=== PATIENT | male | born 1970 | race Caucasian/White ===

== ENCOUNTER 2019-10-19 08:37 | Day surgery (SDC) | payer OTHER ==
[2019-10-12 10:55] LABS: BASOPHILS # (AUTO) 0.1 X10'3 (0-0.2); EOSINOPHILS # (AUTO) 0.1 X10'3 (0-0.9); EOSINOPHILS % (AUTO) 0.9 % (0-6); LYMPHOCYTES # (AUTO) 1.5 X10'3 (1.1-4.8); LYMPHOCYTES % (AUTO) 24.3 % (21-51); MEAN CORPUSCULAR HEMOGLOBIN 29.9 PG (27.0-31.0); MEAN CORPUSCULAR HGB CONC 34.6 g/dL (33.0-36.5); MEAN CORPUSCULAR VOLUME 86.5 FL (78-98); MEAN PLATELET VOLUME 7.5 FL (7.4-10.4); MONOCYTES # (AUTO) 0.3 X10'3 (0-0.9); MONOCYTES % (AUTO) 5.6 % (2-12); NEUTROPHILS # (AUTO) 4.2 X10'3 (1.8-7.7); NEUTROPHILS % (AUTO) 68.2 % (42-75); PRE OP HEMATOCRIT 50.3 % (42.0-52.0); PRE OP HEMOGLOBIN 17.4 g/dL (14.0-17.9); PRE OP PLATELET COUNT 260 X10'3 (140-440); RED BLOOD COUNT 5.82 X10'6 (4.70-6.10)
[2019-10-12 11:07] LABS: PRE OP PROTIME 10.5 SECONDS (9.0-12.0)
[2019-10-12 11:11] LABS: ALBUMIN 4.2 G/DL (3.4-5.0); ALBUMIN/GLOBULIN RATIO 1.3 (1.1-1.5); ALKALINE PHOSPHATASE 76 IU/L (46-116); BLOOD UREA NITROGEN 17 MG/DL (7-18); BUN/CREATININE RATIO 16.3 (5.4-32.0); CALCIUM 9.3 MG/DL (8.5-10.1); CHLORIDE 103 MMOL/L (99-107); CREATININE 1.04 MG/DL (0.60-1.10); PRE OP ALT 46 U/L (30-65); PRE OP ANION GAP 7 (8-16); PRE OP AST 33 U/L (10-37); PRE OP BILIRUB, TOTAL 0.7 MG/DL (0.0-1.0); PRE OP GLUCOSE 113 MG/DL (70-104); PRE OP POTASSIUM 4.2 MMOL/L (3.4-5.1); PRE OP SODIUM 140 MMOL/L (135-145); TOTAL CARBON DIOXIDE 30.2 MMOL/L (24-32); TOTAL PROTEIN 7.5 G/DL (6.4-8.2); eGFR 76 ML/MIN
[2019-10-19] VITALS (15 sets, daily range): BP systolic 107–150; BP diastolic 49–90
[~2019-10-19] VITALS: Ht 180.3 cm; Wt 89.0 kg
[~2019-10-19 08:37] MED LIST: MELA10TA PO; cefazolin/dext.iso 2gm/100ml 100 ML IV ONE; famotidine 20mg tablet PO ONE
[2019-10-19] MEDS: ringers solution, lacted 1,000 ML IV SCH ×2 (08:51→18:40)
[2019-10-19] MEDS ORDERED: fentaNYL/PF 50MCG/1 ML 2ML syringe ONE (11:30)
[2019-10-19] MEDS ORDERED: MIDAZolam 5mg/5ml vial ONE (11:32)
[2019-10-19] MEDS ORDERED: ringers solution, lacted 1,000 ML IV SCH (12:21)
[2019-10-19] MEDS ORDERED: meperidine/PF 25mg/ml syringe IV PRN ×3 (12:25)
[2019-10-19] MEDS ORDERED: morphine 2 MG/ML inj. syringe IV PRN (12:25)
[2019-10-19] MEDS ORDERED: ondansetron/PF 4mg/2ml inj IV PRN ×2 (12:25→13:00)
[2019-10-19] MEDS ORDERED: proCHLORperazine 10 MG/2 ml inj IV PRN ×2 (12:25→13:00)
[2019-10-19] MEDS ORDERED: morphine 4 MG/ML inj SYRINge IV PRN (12:25)
[2019-10-19] MEDS ORDERED: propofol inj 20 ML IV ONE (12:44)
--- NOTE | 2019-10-19 12:54 | NUR ---
Received from OR via SURGICAL BED , accompanied by Anesthesiologist WOLFGANG and report given by Anesthesiolgist. PATIENT WITH 20G PIV IN LEFT FOREARM RUNNING LR AT 100.. VSS. DERMATONE LEVEL AT T12 AT THIS TIME. [address] HOWELL CATHETER WITH IRRIGATION RUNNING. JUSTICE CLANCY DONHOWARD FOR TEMP OF 36'C. SCDS DONNED. URINE CLEAR AND SLIGHTLY PINK TINGED. Addendum: 10/19/19 at 1309 by Herminio Morales RN, RN Amended: Links added.
[2019-10-19] MEDS ORDERED: oxybutynin 5mg tablet PO PRN (13:00)
[2019-10-19] MEDS ORDERED: acetaminophen 325mg tablet PO PRN (13:00)
[2019-10-19] MEDS ORDERED: mag hydrox/Alum hydrox/simeth 30ml oral suspension PO PRN (13:00)
[2019-10-19] MEDS ORDERED: LIDOcaine 2% 10ml TOPICAL JELLY (Urojet) TP ONE (13:00)
[2019-10-19] MEDS ORDERED: zolpidem 5mg tablet PO PRN (13:00)
--- NOTE | 2019-10-19 13:32 | NUR ---
REPORT RECEIVED FORM JADYN KEEN IN RECOVERY
--- NOTE | 2019-10-19 13:44 | NUR ---
ALL CRITERIA FOR TRANSFER TO THE FLOOR HAS BEEN ACHIEVED. VSS. BED LOW, CALL LIGHT AND VS. SET IN PLACE. RN PRESENT TO ACCEPT CARE. PATIENT RESTING COMFORTABLY IN BED. BELONGINGS SENT WITH PATIENT. DRESSINGS CDI. PATIENT WITH VSS. DENIES PAIN, SENSATION LEVEL STILL AT T12-L1. PATIENT WITH 3 BAGS OF BELONGINGS. ALL DELIVERED TO [facility] 345B. GLASSES ON. RN PRESENT TO ACCEPT CARE AND CARE TURNED OVER. Addendum: 10/19/19 at 1348 by Herminio Morales RN RN Amended: Links added.
[2019-10-19] MEDS: ceFAZolin inj. 1,000 MG in dextrose 5%-water 50ml 50 ML IV SCH ×2 (16:27→23:41)
[2019-10-19] MEDS: potassium cl 20mEq in 1/2 NS 1,000 ML IV SCH ×3 (16:28→23:41)
[2019-10-19] MEDS ORDERED: opium/belladonna alkaloids No. 15A 30mg rectal suppository RC PRN (17:20)
--- NOTE | 2019-10-19 18:00 | NUR ---
Patient in room [facility]. I have received report from April SALAMANCA and had the opportunity to ask questions and assume patient care.
--- NOTE | 2019-10-19 19:05 | NUR ---
Problems reprioritized. Patient report given, questions answered & plan of care reviewed with JADYN DOWNING.
[2019-10-19] MEDS: docusate sod 100mg capsule PO SCH (20:00)
[2019-10-19] MEDS ORDERED: Melatonin 3mg tablet PO SCH (21:00)
[2019-10-20] VITALS: BP 110/68
[2019-10-20 05:27] LABS: BASOPHILS % (AUTO) 0.4 % (0-1); EOSINOPHILS # (AUTO) 0.1 X10'3 (0-0.9); EOSINOPHILS % (AUTO) 1.8 % (0-6); HEMATOCRIT 41.8 % (42.0-52.0); HEMOGLOBIN 14.4 g/dl (14.0-17.9); LYMPHOCYTES # (AUTO) 1.2 X10'3 (1.1-4.8); MEAN CORPUSCULAR HEMOGLOBIN 29.8 PG (27.0-31.0); MEAN CORPUSCULAR HGB CONC 34.4 g/dL (33.0-36.5); MEAN CORPUSCULAR VOLUME 86.5 FL (78-98); MEAN PLATELET VOLUME 7.4 FL (7.4-10.4); MONOCYTES # (AUTO) 0.5 X10'3 (0-0.9); MONOCYTES % (AUTO) 8.4 % (2-12); NEUTROPHILS # (AUTO) 4.6 X10'3 (1.8-7.7); NEUTROPHILS % (AUTO) 71.4 % (42-75); PLATELET COUNT 212 X10'3 (140-440); RED BLOOD COUNT 4.83 X10'6 (4.70-6.10); RED CELL DISTRIBUTION WIDTH 12.4 % (11.5-14.5); WHITE BLOOD COUNT 6.4 X10'3 (4.5-11.0)
[2019-10-20 05:54] LABS: ALBUMIN 3.3 G/DL (3.4-5.0); ANION GAP 8 (8-16); BLOOD UREA NITROGEN 17 MG/DL (7-18); BUN/CREATININE RATIO 16.5 (5.4-32.0); CALCIUM 8.9 MG/DL (8.5-10.1); CHLORIDE 110 MMOL/L (99-107); CREATININE 1.03 MG/DL (0.60-1.10); GLUCOSE 106 MG/DL (70-104); POTASSIUM 4.2 MMOL/L (3.5-5.1); SODIUM 144 MMOL/L (135-145); TOTAL CARBON DIOXIDE 26.4 MMOL/L (24-32); eGFR 76 ML/MIN
--- NOTE | 2019-10-20 06:30 | NUR ---
Problems reprioritized. Patient report given, questions answered & plan of care reviewed with Reta SALAMANCA.
[2019-10-20] MEDS ORDERED: pantoprazole 40mg Tablet.DR PO SCH (07:30)
[2019-10-20 07:32] VITALS: BP 112/66
[2019-10-20] MEDS: docusate sod 100mg capsule PO SCH (08:00)
[2019-10-20] MEDS: ceFAZolin inj. 1,000 MG in dextrose 5%-water 50ml 50 ML IV SCH (08:48)
[2019-10-20] MEDS ORDERED: OXYB5TAB16 PO (10:20)
[2019-10-20] MEDS ORDERED: DOCU-148 PO (10:20)
[2019-10-20 11:00] VITALS: BP 138/84
--- NOTE | 2019-10-20 11:34 | NUR ---
Reviewed discharge paperwork with patient. He is aware of weight restrictions, knows to poultry picker medications, verified pharmacy, aware of catheter care and techniques, and knows to f/u with MD Herrera. He has contact information available to him. IV DC'd, pressure bandage applied, no s/sx bleeding noted. Pt's who is giving him a ride home lives in [place] and he has called her for transport. Leg bag, night collection bag, alcohol swabs, and leg strap provided. Pt. had the opportunity to ask questions. he is ambulating well and plans to do so at home as well. He knows to call Javier's office if he has any concerns or complications.
[2019-10-21] MEDS ORDERED: IBUP-1985 PO (20:12)
== END 2019-10-20 12:00 | disposition home or self-care (01) ==
LOC: PAS 08:37 → SUR 3N 13:00 → PAS 10-20 12:00
PROVIDERS: ATTEND Urology
DX: N40.1 Benign prostatic hyperplasia with lower urinary tract symptoms (principal); R33.8 Other retention of urine; J45.909 Unspecified asthma, uncomplicated; Z87.891 Personal history of nicotine dependence; Z79.899 Other long term (current) drug therapy
CPT/HCPCS: 36415; 52601; 80048; 80053; 82948; 85025; 85610; 85730; 86885; 86900; 86901; 93005; J0690; J2250; J2704; J3010; J7060; A4346; A4355; A4615; G0378; J3480; J7120

== ENCOUNTER 2019-10-21 17:51 | Emergency (ER) | payer OTHER ==
[~2019-10-21] VITALS: Ht 180.3 cm; Wt 83.6 kg
[~2019-10-21 17:51] MED LIST changes: +DOCU-148 PO; +OXYB5TAB16 PO; -cefazolin/dext.iso 2gm/100ml 100 ML IV ONE; -famotidine 20mg tablet PO ONE
[2019-10-21] MEDS ORDERED: ketorolac tromethamine 15mg/ml inj. IV ONE (18:15)
[2019-10-21 18:37] LABS: BASOPHILS % (AUTO) 0.5 % (0-1); EOSINOPHILS # (AUTO) 0.1 X10'3 (0-0.9); EOSINOPHILS % (AUTO) 0.7 % (0-6); HEMATOCRIT 44.2 % (42.0-52.0); HEMOGLOBIN 15.3 g/dl (14.0-17.9); LYMPHOCYTES # (AUTO) 1.2 X10'3 (1.1-4.8); LYMPHOCYTES % (AUTO) 12.5 % (21-51); MEAN CORPUSCULAR HEMOGLOBIN 29.9 PG (27.0-31.0); MEAN CORPUSCULAR HGB CONC 34.7 g/dL (33.0-36.5); MEAN CORPUSCULAR VOLUME 86.4 FL (78-98); MEAN PLATELET VOLUME 7.4 FL (7.4-10.4); MONOCYTES # (AUTO) 0.5 X10'3 (0-0.9); MONOCYTES % (AUTO) 5.3 % (2-12); NEUTROPHILS # (AUTO) 7.9 X10'3 (1.8-7.7); PLATELET COUNT 228 X10'3 (140-440); RED BLOOD COUNT 5.12 X10'6 (4.70-6.10); RED CELL DISTRIBUTION WIDTH 12.5 % (11.5-14.5); WHITE BLOOD COUNT 9.7 X10'3 (4.5-11.0)
[2019-10-21 18:42] LABS: ALANINE AMINOTRANSFERASE 33 U/L (12-78); ALBUMIN 3.7 G/DL (3.4-5.0); ALBUMIN/GLOBULIN RATIO 1.2 (1.1-1.5); ALKALINE PHOSPHATASE 74 IU/L (46-116); ANION GAP 10 (8-16); ASPARTATE AMINO TRANSFERASE 29 U/L (10-37); BILIRUBIN,TOTAL 0.4 MG/DL (0.1-1.0); BLOOD UREA NITROGEN 17 MG/DL (7-18); BUN/CREATININE RATIO 13.1 (5.4-32.0); CALCIUM 9.2 MG/DL (8.5-10.1); CHLORIDE 105 MMOL/L (99-107); GLUCOSE 100 MG/DL (70-104); POTASSIUM 3.5 MMOL/L (3.5-5.1); SODIUM 139 MMOL/L (135-145); TOTAL PROTEIN 6.7 G/DL (6.4-8.2); eGFR 58 ML/MIN
[2019-10-21 19:32] LABS: CLARITY,URINE CLOUDY (Clear); COLOR,URINE RED (Yellow); UA COLLECTION TYPE FOLEY CATH
[2019-10-21 19:33] LABS: BACTERIA,URINE FEW /HPF (Neg); RBC,URINE TNTC /HPF (0-2); SQUAMOUS EPITHELIAL CELL,UR FEW /LPF (FEW)
[2019-10-21 20:03] VITALS: BP 137/89
[2019-10-21] MEDS ORDERED: IBUP-1985 PO (20:12)
== END 2019-10-21 20:32 | disposition home or self-care (01) ==
LOC: ER 17:51
DX: G89.18 Other acute postprocedural pain (principal); R10.9 Unspecified abdominal pain; N40.0 Benign prostatic hyperplasia without lower urinary tract symptoms
CPT/HCPCS: 74176; 80053; 81001; 85025; 87088; 96374; 99284; J1885

== ENCOUNTER 2022-12-01 06:57 | Emergency (ER) | payer OTHER ==
[~2022-12-01] VITALS: Ht 180.3 cm; Wt 96.4 kg
[~2022-12-01 06:57] MED LIST changes: +IBUP-1985 PO; -MELA10TA PO; +MELATONIN10 MG PO
[2022-12-01 07:40] LABS: BASOPHILS % (AUTO) 0.5 % (0-1); EOSINOPHILS # (AUTO) 0.2 X10'3 (0-0.9); EOSINOPHILS % (AUTO) 3.4 % (0-6); HEMATOCRIT 49.9 % (42.0-52.0); HEMOGLOBIN 16.8 g/dl (14.0-17.9); LYMPHOCYTES # (AUTO) 1.8 X10'3 (1.1-4.8); LYMPHOCYTES % (AUTO) 39.7 % (21-51); MEAN CORPUSCULAR HEMOGLOBIN 29.8 PG (27.0-31.0); MEAN CORPUSCULAR HGB CONC 33.7 g/dL (33.0-36.5); MEAN CORPUSCULAR VOLUME 88.6 FL (78-98); MEAN PLATELET VOLUME 7.9 FL (7.4-10.4); MONOCYTES # (AUTO) 0.5 X10'3 (0-0.9); MONOCYTES % (AUTO) 10.1 % (2-12); NEUTROPHILS # (AUTO) 2.1 X10'3 (1.8-7.7); NEUTROPHILS % (AUTO) 46.3 % (42-75); PLATELET COUNT 277 X10'3 (140-440); RED BLOOD COUNT 5.64 X10'6 (4.70-6.10); RED CELL DISTRIBUTION WIDTH 13.2 % (11.5-14.5); WHITE BLOOD COUNT 4.6 X10'3 (4.5-11.0)
[2022-12-01 07:48] LABS: APTT 27 SECONDS (22-32)
[2022-12-01 08:08] LABS: ALANINE AMINOTRANSFERASE 46 U/L (12-78); ALBUMIN 4.4 G/DL (3.4-5.0); ALBUMIN/GLOBULIN RATIO 1.5 (1.1-1.5); ALKALINE PHOSPHATASE 58 IU/L (46-116); ANION GAP 10 (8-16); ASPARTATE AMINO TRANSFERASE 23 U/L (10-37); BILIRUBIN,TOTAL 0.7 MG/DL (0.1-1.0); BLOOD UREA NITROGEN 20 MG/DL (7-18); BUN/CREATININE RATIO 17.2 (10.0-20.0); CALCIUM 9.8 MG/DL (8.5-10.1); CHLORIDE 103 MMOL/L (99-107); CREATININE 1.16 MG/DL (0.60-1.10); GLUCOSE 123 MG/DL (70-104); MAGNESIUM 2.1 MG/DL (1.5-2.4); POTASSIUM 3.9 MMOL/L (3.5-5.1); SODIUM 142 MMOL/L (135-145); TOTAL CARBON DIOXIDE 29.4 MMOL/L (24-32); TOTAL PROTEIN 7.3 G/DL (6.4-8.2); eGFR 66 ML/MIN
[2022-12-01 09:00] VITALS: BP 116/81
[2022-12-01] MEDS ORDERED: ONDA4TAB12 PO (09:03)
[2022-12-01] MEDS ORDERED: AMOX-580 PO (09:03)
== END 2022-12-01 09:14 | disposition home or self-care (01) ==
LOC: ER 06:58
DX: J32.9 Chronic sinusitis, unspecified (principal); R51.9 Headache, unspecified; Z79.899 Other long term (current) drug therapy
CPT/HCPCS: 36415; 70450; 80053; 83735; 83880; 84484; 85025; 85610; 85730; 93005; 99284